=== PATIENT | female | born 1970 | race Caucasian/White ===

== ENCOUNTER 2017-07-28 00:18 | Inpatient (IN) | payer MEDICAID ==
[~2017-07-28] VITALS: Ht 170.2 cm; Wt 88.9 kg
[2017-07-28] MEDS ORDERED: SODIUM CHLORIDE 0.9% 1,000ML IVBOLUS ONE (01:30)
[2017-07-28] MEDS ORDERED: SODIUM CHLORIDE FLUSH 10ML SYR IVF ONE (01:30)
[2017-07-28] MEDS ORDERED: ONDANSETRON 2MG/ML, 2ML IVPush ONE (01:30)
[2017-07-28] MEDS ORDERED: morphine SULFATE 10 MG/ML, 1ML ONE (01:51)
[2017-07-28] MEDS ORDERED: ONDANSETRON 2MG/ML, 2ML ONE (01:51)
[2017-07-28 01:54] LABS: HEMATOCRIT 41.5 % (34.6-47.8); HEMOGLOBIN 14.2 g/dL (11.7-16.4); WHITE BLOOD COUNT 14.5 x10^3/uL (3.4-10)
[2017-07-28 02:03] LABS: ASPARTATE AMINO TRANSFERASE 28 U/L (15-37); BLOOD UREA NITROGEN 7 mg/dL (7-18)
[2017-07-28] MEDS: MORPHINE SULFATE 4 MG/ML, 1ML IVPush PRN ×2 (02:17→03:18)
[2017-07-28] MEDS ORDERED: CEFDINIR 300 MG CAPSULE PO STA (03:08)
[2017-07-28] MEDS ORDERED: OMNIPAQUE 350 MG/ML, 100ML BOTTLE ONE (03:35)
[2017-07-28] MEDS ORDERED: SODIUM CHLORIDE 0.9% 1,000 ML IV ONE (04:42)
[2017-07-28] MEDS ORDERED: CLINDAMYCIN PMX 900MG/50ML 50 ML IV SCH (05:00)
[2017-07-28] MEDS ORDERED: GENTAMICIN PER PHARMACY MC PRN (05:00)
[2017-07-28] MEDS ORDERED: HYDROmorphone 1 MG/ML, 1ML IVPush PRN (05:00)
[2017-07-28] MEDS ORDERED: PHARMACOKINETIC MONITORING MC PRN (05:00)
[2017-07-28] MEDS ORDERED: PHARMACOKINETIC CONSULTATION MC ONE (05:00)
[2017-07-28] MEDS ORDERED: ONDANSETRON 2MG/ML, 2ML IVPush PRN (05:00)
[2017-07-28] MEDS ORDERED: HYDROmorphone 1 MG/ML, 1ML ONE (05:01)
[2017-07-28] MEDS: AMPICILLIN 2 GM in SODIUM CHLORIDE 0.9% 100 ML IV SCH ×2 (06:09→11:55)
[2017-07-28] MEDS: GENTAMICIN 440 MG in SODIUM CHLORIDE 0.9% 100 ML IV SCH (07:04)
[2017-07-28 07:35] VITALS: BP 131/78
[2017-07-28] MEDS ORDERED: ACETAMINOPHEN 325 MG TABLET PO PRN (09:00)
[2017-07-28] MEDS ORDERED: OXYcodone/APAP 5/325MG TABLET ONE (09:37)
[2017-07-28] MEDS: OXYcodone/APAP 5/325MG TABLET PO PRN ×3 (09:47→19:58)
[2017-07-28] MEDS: METRONIDAZOLE PMX 500MG/100ML 100 ML IV SCH ×2 (09:48→21:43)
[2017-07-28] MEDS ORDERED: LORazepam 2 MG/ML, 1ML IVPush PRN (10:00)
[2017-07-28] MEDS ORDERED: IBUPROFEN 200 MG TABLET PO PRN (10:00)
[2017-07-28] MEDS ORDERED: CEFTRIAXONE PMX 1GM/50ML 50 ML IV SCH (10:00)
[2017-07-28] MEDS ORDERED: DOXYCYCLINE 100 MG in DEXTROSE 5% 250 ML IV SCH (10:00)
[2017-07-28] MEDS: DOXYCYCLINE 100MG TABLET PO SCH ×2 (11:34→19:58)
[2017-07-28 13:21] VITALS: BP 96/64
[2017-07-28] MEDS: SODIUM CHLORIDE 0.9% 1,000 ML IV SCH (15:11)
[2017-07-28] MEDS: BACLOFEN 10 MG TABLET PO SCH ×2 (15:11→19:58)
[2017-07-28 16:47] LABS: DAU SCREEN DISCLAIMER
[2017-07-28] MEDS: AMPICILLIN 2 GM in SODIUM CHLORIDE 0.9% 50 ML IV SCH ×2 (17:10→23:24)
[2017-07-28] MEDS ORDERED: QUET100T4 PO (19:04)
[2017-07-28 19:32] VITALS: BP 114/74
[2017-07-28] MEDS: GUAIFENESIN ER 600 MG TABLET PO SCH (19:58)
[2017-07-28] MEDS ORDERED: QUETIAPINE 100MG TABLET PO SCH (21:00)
[2017-07-29] MEDS: SODIUM CHLORIDE 0.9% 1,000 ML IV SCH (01:27)
[2017-07-29 01:30] VITALS: BP 122/74
[2017-07-29] MEDS: AMPICILLIN 2 GM in SODIUM CHLORIDE 0.9% 50 ML IV SCH ×2 (05:39→11:00)
[2017-07-29] MEDS: GENTAMICIN 440 MG in SODIUM CHLORIDE 0.9% 100 ML IV SCH (06:41)
[2017-07-29 07:24] VITALS: BP 124/74
[2017-07-29 07:39] LABS: HEMATOCRIT 35.6 % (34.6-47.8); HEMOGLOBIN 12.1 g/dL (11.7-16.4); WHITE BLOOD COUNT 15.3 x10^3/uL (3.4-10)
[2017-07-29] MEDS: OXYcodone/APAP 5/325MG TABLET PO PRN (09:02)
[2017-07-29] MEDS: BACLOFEN 10 MG TABLET PO SCH (09:02)
[2017-07-29] MEDS: DOXYCYCLINE 100MG TABLET PO SCH (09:02)
[2017-07-29] MEDS: GUAIFENESIN ER 600 MG TABLET PO SCH (09:02)
[2017-07-29] MEDS: METRONIDAZOLE PMX 500MG/100ML 100 ML IV SCH (09:09)
== END 2017-07-29 12:09 | disposition left against medical advice (07) | DRG 872 ==
LOC: ED 01:50 → EDIP 04:42 → 4NOR 05:22
PROVIDERS: ADMIT Obstetrics & Gynecology; ATTEND Obstetrics & Gynecology
DX: A41.9 Sepsis, unspecified organism (principal); E87.1 Hypo-osmolality and hyponatremia; R17 Unspecified jaundice; F10.239 Alcohol dependence with withdrawal, unspecified; A59.9 Trichomoniasis, unspecified; F15.10 Other stimulant abuse, uncomplicated; F17.210 Nicotine dependence, cigarettes, uncomplicated; J40 Bronchitis, not specified as acute or chronic; K59.00 Constipation, unspecified; N70.91 Salpingitis, unspecified; Z59.0 Homelessness; Z83.3 Family history of diabetes mellitus; R19.7 Diarrhea, unspecified; R73.9 Hyperglycemia, unspecified
CPT/HCPCS: 36415; 71010; 74177; 76830; 80053; 80170; 80307; 81001; 83036; 83605; 83690; 84703; 85025; 87040; 87086; 87147; 87491; 87591; 96361; 96374; 96375; 96376; J0290; J1170; J2405; Q9967; G0479; J1580; J7030